=== PATIENT | female | born 1955 | race Caucasian/White ===

== ENCOUNTER 2018-07-22 17:18 | Emergency (ER) | payer BC ==
[2018-07-22] MEDS: ACETAMINOPHEN 325 MG TAB PO (18:38)
== END 2018-07-22 19:34 | disposition home or self-care (01) ==
LOC: FTE 17:18
DX: R51 Headache (principal); F17.210 Nicotine dependence, cigarettes, uncomplicated
CPT/HCPCS: 70450; 99284-25